=== PATIENT | male | born 1945 | race Caucasian/White ===

== ENCOUNTER → 2019-04-05 | Outpatient (CLI) | payer MEDICARE ==
--- NOTE | 2019-04-06 12:22 | XCELERA REPORT ---
[address] [address] Lower Extremity Venous Evaluation Procedure: A bilateral duplex scan of the lower extremity veins was performed. The evaluation included responses to compression and other maneuvers with patient in the supine and standing positions to assess venous insufficiency. Right Sided Venous Evaluation Study challenging due to mobility limitations, body habitus. Deep venous system evaluation shows patent veins with no obstruction or significant reflux identified. Saphena Femoral junction: no reflux. Femoral vein reflux: no reflux. Greater Saphenous vein, Proximal thigh: reflux: no reflux. Greater Saphenous vein, Distal thigh: reflux: no reflux. Greater Saphenous vein, Proximal below knee: reflux: no reflux. No significant Perforators identified. Left Sided Venous Evaluation Study challenging due to mobility limitations, body habitus. Deep venous system evaluation shows patent veins with no obstruction or significant reflux identified. Saphena Femoral junction: no reflux. Femoral vein reflux: no reflux. Greater Saphenous vein, Proximal thigh: reflux: no reflux. Greater Saphenous vein, Distal thigh: reflux: no reflux. Greater Saphenous vein, Proximal below knee: reflux: no reflux. No significant Perforators identified. Interpretation Summary No duplex evidence of DVT or obstruction in the bilateral lower extremities. No significant deep or superficial reflux noted. Name: ANAMIKA ENCARNACION Age: 73 yrs Gender: Male : 1945 Patient Status: Outpatient Patient Location: [facility] Study Date: 04/05/2019 10:42 AM Reason For Study: LYMPHEDEMA Ordering Physician: MEG SHARP Performed By: Ana María Parsons : MEG SHARP > Eduin Ritter
--- NOTE | 2019-04-06 16:47 | XCELERA REPORT ---
[address] [address] Lower Extremity Arterial Evaluation Name: ANAMIKA ENCARNACION Age: 73 yrs Gender: Male : 1945 Patient Status: Outpatient Patient Location: [facility] Study Date: 04/05/2019 10:16 AM Procedure: A color flow and duplex scan of the lower extremity arteries was performed bilaterally with velocity and waveform anaylsis. Ankle brachial indicies performed. Reason For Study: LYMPHEDEMA Ordering Physician: MEG SHARP Performed By: Ana María Parsons Measurements and Calculations Right Left COLLAR BASTER PSV 195.3 157.2 cm/sec Prox PFA PSV 94.8 81.7 cm/sec Prox SFA PSV 251.2 203.2 cm/sec Mid SFA PSV -139.0 -151.6cm/sec Dist SFA PSV -78.2 -124.9cm/sec Prox Pop A PSV 108.9 88.8 cm/sec Dist BIANKA PSV 119.4 148.5 cm/sec Dist HOSE TESTER PSV 95.0 128.9 cm/sec Eric Pedis PSV 23.3 41.3 cm/sec Right Side Arterial Evaluation Normal velocity and biphasic waveforms with moderate spectral broadening, noted from the Common Femoral artery to the infrageniculate vessels Monophasic with low velocity spectral broadening, in the Dorsalis Pedis arteries. Ankle Brachial index not obtainable due to non compressibility. Left Side Arterial Evaluation Normal velocity and biphasic waveforms with moderate spectral broadening, noted from the Common Femoral artery to the infrageniculate vessels Monophasic with low velocity spectral broadening, in the Dorsalis Pedis arteries. Ankle Brachial index not obtainable due to non compressibility. Interpretation Summary Moderate hemodynamically significant lesions in the bilateral lower extremities, on duplex imaging, at rest. CASSIE non compressibility is indicative of arterial wall stiffness, likely due to calcification. : MEG SHARP Eduin Ritter
== END ==
LOC: RAD 09:18
PROVIDERS: ATTEND Nurse Practitioner Family
DX: I89.0 Lymphedema, not elsewhere classified (principal); E11.621 Type 2 diabetes mellitus with foot ulcer
CPT/HCPCS: 93922; 93925; 93970